=== PATIENT | female | born 1930 | race African-American/Black ===

== ENCOUNTER 2017-09-23 18:37 | Inpatient (IN) | payer MEDICARE, MEDICAID ==
[2017-09-23 20:01] LABS: Bilirubin Negative (Negative); Blood, Urine Trace (Negative); Glucose, Urine (Dipstick) Negative (Negative); Ketone, Urine Negative (Negative); Nitrite Negative (Negative); Protein, Urine (Dipstick) Negative (Neg-Trace)
[2017-09-23 20:04] LABS: Bacteria/HPF 1+ HPF (None Seen); Hyaline Casts/LPF 0-3 HYALINE CAST LPF (0-3 Hyaline); Squamous Epithelial None Seen HPF (0-3); WBC/HPF 21-50 HPF (0-3)
[2017-09-23 20:12] LABS: Amphetamine Not Detected (NotDetected); Methadone Not Detected (NotDetected); Methamphetamine Not Detected (NotDetected)
[2017-09-23 20:17] LABS: #Lymphocytes 1.1 thou/uL (1.20-3.40); #Monocytes 0.5 thou/uL (0.11-0.59); #Neutrophils 3.8 thou/uL (1.40-6.50); %Basophils 0.3 % (0.0-1.0); %Eosinophils 0.1 % (0.0-10.0); %Lymphocytes 19.5 % (21.0-51.0); %Monocytes 8.8 % (0.0-10.0); Hematocrit 39.3 % (36.0-47.0); Mean Platelet Volume 7.2 fL (7.4-10.4); Red Blood Cell (RBC) Count 4.21 mill/uL (4.20-5.40); White Blood Cell (WBC) Count 5.4 thou/uL (4.8-10.8)
[2017-09-23 20:29] LABS: ALT (SGPT) 7 U/L (8-55); AST (SGOT) 27 U/L (5-34); Alkaline Phosphatase 92 U/L (40-150); Anion Gap 13 mmol/L (10-20); BUN (Urea Nitrogen) 15 mg/dL (9.8-20.1); Bilirubin, Total 0.6 mg/dL (0.2-1.2); Calc. Creatinine Clearance 0 mL/min (70-130); Calcium 8.8 mg/dL (7.8-10.44); Carbon Dioxide 25 mmol/L (23-31); Chloride 104 mmol/L (98-107); Estimated GFR-MDRD 87; Globulin 3.2 g/dL (2.4-3.5); Lipase Less than 4 U/L (8-78); Magnesium 2.3 mg/dL (1.6-2.6); Protein, Total 6.4 g/dL (6.0-8.3)
[2017-09-23 20:31] LABS: Troponin I 0.078 ng/mL (< 0.028)
[2017-09-23 22:13] LABS: Troponin I 0.086 ng/mL (< 0.028)
[2017-09-24 01:20] LABS: Troponin I 0.091 ng/mL (< 0.028)
[2017-09-24] MEDS: hydrALAZINE 20 MG/ML VIAL SLOW IVP PRN ×2 (03:46→13:15)
[2017-09-24] MEDS: Acetaminophen 325 MG TAB PO PRN (03:47)
[2017-09-24 05:18] LABS: Anion Gap 15 mmol/L (10-20); BUN (Urea Nitrogen) 12 mg/dL (9.8-20.1); Calc. Creatinine Clearance 51 mL/min (70-130); Calcium 8.8 mg/dL (7.8-10.44); Carbon Dioxide 19 mmol/L (23-31); Chloride 105 mmol/L (98-107); Estimated GFR-MDRD Greater than 90
--- NOTE | 2017-09-24 06:24 | PDOC.FM ---
- Subjective Subjective: Pt is acutely confused. Per nursing she was trying to get out of bed and was A& O x0. - Objective Vital Signs & Weight: Vital Signs (12 hours) Temp Pulse Resp BP BP Pulse Ox 09/24/17 04:00 97.7 F 75 18 195/83 H 97 09/24/17 03:46 77 192/83 H 09/24/17 01:53 98 09/24/17 00:10 97.6 F 64 20 174/86 H 95 Weight Weight 58.468 kg I&O: 09/22/17 09/23/17 09/24/17 06:59 06:59 06:59 Intake Total 50 Balance 50 Result Diagrams: 09/23/17 19:58 09/24/17 04:48 <Ron Preston - Last Filed: 09/24/17 10:27> - Objective Vital Signs & Weight: Vital Signs (12 hours) Temp Pulse Resp BP BP Pulse Ox 09/24/17 08:00 98.9 F 70 18 98 09/24/17 07:23 98.9 F 70 18 134/67 98 09/24/17 06:33 155/77 H 09/24/17 04:00 97.7 F 75 18 195/83 H 97 09/24/17 03:46 77 192/83 H 09/24/17 01:53 98 09/24/17 00:10 97.6 F 64 20 174/86 H 95 Weight Weight 58.468 kg I&O: 09/23/17 09/24/17 09/25/17 06:59 06:59 06:59 Intake Total 50 Balance 50 Result Diagrams: 09/24/17 04:48 09/24/17 04:48 <Cornelio Diaz - Last Filed: 09/24/17 10:44> Phys Exam - Physical Examination Constitutional: NAD HEENT: moist MMs Neck: no JVD, full ROM Respiratory: clear to auscultation bilateral irregularly irregular Gastrointestinal: soft, non-tender, no distention, positive bowel sounds Musculoskeletal: no edema diffusely tender on R leg. difficult to localize dt confusion Neurological: non-focal, moves all 4 limbs Deviation from normal: A&O x0 Skin: no rash <Ron Preston - Last Filed: 09/24/17 10:27> Dx/Plan (1) Acute delirium Code(s): R41.0 - DISORIENTATION, UNSPECIFIED Status: Acute (2) UTI (urinary tract infection) Status: Acute QualifierTitle: Urinary tract infection type: acute cystitis Hematuria presence: without hematuria Qualified Code(s): N30.00 - Acute cystitis without hematuria (3) Elevated troponin Code(s): R74.8 - ABNORMAL LEVELS OF OTHER SERUM ENZYMES Status: Acute (4) Afib Code(s): I48.91 - UNSPECIFIED ATRIAL FIBRILLATION Status: Chronic QualifierTitle: Atrial fibrillation type: unspecified Qualified Code(s): I48.91 - Unspecified atrial fibrillation (5) Recurrent falls Code(s): R29.6 - REPEATED FALLS Status: Chronic Plan: 1. Acute delirium -likely 2/2 UTI. Pt has cultures pending, rocephin on board -possible other causes include intracranial bleed, will order head CT, and advanced dementia 2. UTI -continue rocephin while cx are pending 3. HTN -med rec pending, son will bring meds -PRN hydralizine 4. Dementia -unsure as to baseline function, son is not very reliable -pt needs placement in nursing facility -case management consult pending 5. afib -unsure what pt normally takes for anticoagulation, meds pending from son -start prophylactic lovenox after brain bleed ruled out 6. Hx of falls -xray of L hip/leg -ct brain (6) HTN (hypertension) Code(s): I10 - ESSENTIAL (PRIMARY) HYPERTENSION Status: Acute QualifierTitle: Hypertension type: unspecified Qualified Code(s): I10 - Essential (primary) hypertension (7) Diabetes mellitus Code(s): E11.9 - TYPE 2 DIABETES MELLITUS WITHOUT COMPLICATIONS Status: Chronic (8) Dementia Code(s): F03.90 - UNSPECIFIED DEMENTIA WITHOUT BEHAVIORAL DISTURBANCE Status: Chronic - Plan Plan: 1. Acute delirium -dementia vs UTI vs intracranial bleed -rocephin on board, cultures pending -consider brain ct 2. UTI -abx and cx as above -move to po meds pending speech eval and sensitivities 3. Hx of falls -brain ct -L hip/leg xray 4. Afib -unsure as to home meds. Waiting for son to bring meds -start lovenox pending brain imaging 5. HTN -med rec pending as above. -PRN hydralizine 6. DM -dont know meds. Hx from son -SSI 7. Dementia -do not know baseline. Per son she is normally forgetful, however he is a poor historian -pt needs placement in nursing facility -case management consult pending 8. Elevated trops -now down trending -likely related to demand -continue to monitor. <Ron Preston - Last Filed: 09/24/17 10:27> Attending Addendum - Attending Addendum I personally evaluated the patient and discussed the management with Dr. Preston. I agree with the History, Examination, Assessment and Plan documented above with any addition or exceptions noted below. Patient mentation somewhat improved this morning. She was oriented x 1. She has baseline dementia with what appears to be chronic progression with possibly some acute worsening. She has UTI that could be causing some of this. We will spend today keeping patient awake to prevent sundowning tonight. Continue abx and await culture. She is afebrile. Her troponins are downtrending. Possible demand ischemia with underlying cardiac disease, but no known diagnosis. Will discuss with family how in depth they would like to pin down diagnosis as it would likely not change her prognosis or activity level. Consider Echo or stress if they want further workup. Will work on placement for patient as she is deconditioned and needs more intensive monitoring than what family feels they can provide. <Cornelio Diaz - Last Filed: 09/24/17 10:44>
[2017-09-24] MEDS ORDERED: Dextrose 50% Abboject 50 ML SYRINGE SLOW IVP PRN (07:23)
[2017-09-24] MEDS ORDERED: Dextrose 5% in Water 1,000 ML IV PRN (07:23)
[2017-09-24] MEDS ORDERED: HumaLOG 300 UNITS/3 ML VIAL SC PRN (07:23)
--- NOTE | 2017-09-24 07:51 | PDOC.EVN ---
Attending Addendum - Attending Addendum I personally evaluated the patient and discussed the management with Dr. Medrano. I agree with the History, Examination, Assessment and Plan documented in his H& P with any addition or exceptions noted below. Patient admitted after transfer due to fall and incidental finding of elevated troponins in this elderly patient. She has been admitted for enzymes rule out. Will discuss with family the desire for more intensive testing such as stress testing. Her vitals are stable. She appears to have UTI on UA which could be contributing to symptoms of fall. Will treat empirically and await cultures. Treat chronic conditions as necessary. Therapy while in house.
[2017-09-24 08:43] LABS: Troponin I 0.124 ng/mL (< 0.028)
--- NOTE | 2017-09-24 08:47 | HP-2 ---
CODE STATUS: FULL. PRIMARY CARE PHYSICIAN: [facility]. ATTENDING: Dr. Diaz, PGY1 and Dr. Medrano. HISTORIAN: Mostly from her son. CHIEF COMPLAINT: Altered mental status and elevated troponins from an outside ED. HISTORY OF PRESENT ILLNESS: This is an 87-year-old female with advanced dementia that presents from the [facility] ED after finding UTI and elevated troponins. In the recent past, her son states she love s been getting more and more confused and has had more falls and has been more of a burden on himself . He states his mother has had dementia over 8 years and is getting worse. He also notes that she h as had more falls, especially over the last couple days. The patient did not complain of any chest p ain during this interview, but she did note some pain on her left side. She also noted some tenderne ss to her left lower extremity. She has no other complaints at this time. PAST MEDICAL HISTORY: Significant for hypertension, diabetes, and dementia. PAST SURGICAL HISTORY: Unavailable as she is a poor historian. ALLERGIES: CODEINE and INDOCIN. MEDICATIONS: Unavailable at this time, the son will be traveling home to get the meds to be sent to us tomorrow. FAMILY HISTORY: Deferred. SOCIAL HISTORY: Denies any tobacco, alcohol or drug use. REVIEW OF SYSTEMS: General: She denies any fevers or chills, weight changes, night sweats, or fatig ue. Eyes: Denies any vision changes or eye pain. ENT: Denies nasal congestion, rhinorrhea, or sor e throat. Respiratory: Denies cough, congestion, shortness of breath or exercise intolerance. Card iovascular: Her son does state that she had some chest pain. Denies any palpitations, edema, orthop eugenia. Gastrointestinal: Denies any nausea, vomiting, diarrhea, constipation, abdominal pain, GI blee ding. Genitourinary: Denies any incontinence. Denies any polyuria or denies any discharge. Skin: Denies any rashes, lesions, jaundice, itching. Musculoskeletal: Denies any pain, tenderness, stiff ness, swelling. Neurologic: Denies any weakness, numbness, syncope, seizures, but she has had falls in the recent past. Psychiatric: Denies anxiety or depression, but she has had advanced dementia. PHYSICAL EXAMINATION: VITAL SIGNS: Blood pressure is 167/76, pulse was 78, respiratory rate 14, temperature max 98.0, puls e ox 98% on room air, current weight is 68 kilos. GENERAL: She is alert and oriented x2, appropriate, interactive. EYES: Ectropion is present bilaterally. ENT: Nasal mucosa and oropharynx within normal limits. NECK: Supple, without lymphadenopathy, without thyromegaly, without bruit. CARDIOVASCULAR: Regular rate and rhythm. She did have a murmur present. Radial and pedal pulses ar e equal bilaterally. RESPIRATORY: Normal effort. LUNGS: Clear to auscultation bilaterally. SKIN: Warm and dry. ABDOMEN: Soft, nontender to palpation. Bowel sounds are present x4. No mass or distention. EXTREMITIES: She did not have any clubbing or cyanosis. She did have some edema. She does not have any edema. She does have some left lower extremity redness and tenderness. MUSCULOSKELETAL: Structure, tone. Muscle strength and range of motion within normal limits. NEUROLOGIC: No focal neurologic deficits. Sensation within normal limits. Cranial nerves II-XII gr ossly intact. GCS was 15. PSYCH: She was appropriate. LABORATORY DATA: White blood cell count 5.4, platelet count 251, hemoglobin 13.1, hematocrit 39.3, M CV was 93.4, neutrophils 71.2. Sodium 138, potassium 4.0, chloride 104, bicarbonate 25, BUN 15, crea tinine 0.76, glucose 99, calcium 8.8, total protein 6.4, albumin 3.2, AST 27, ALT 7, alkaline phospha tase 92, total bilirubin 0.6. CK-MB was 4.6, troponin I was 0.078 and 0.086. Lipase was less than 4. UDS was negative. UA showed a small amount of leukocyte esterase, 4 to 6 red blood cells and 21 to 50 white blood cells and 1+ bacteria. ASSESSMENT AND PLAN: This is an 87-year-old female who presents with: 1. Elevated troponins. We will trend her troponins, repeat an EKG if she is symptomatic. We will g et a TSH, BNP and consider Cardiology consult. 2. Urinary tract infection. We will continue her antibiotics. 3. Acute delirium secondary to the urinary tract infection same as above. 4. Dementia, likely need long-term care facility and case management consult. 5. Physical deconditioning. Case management consult for long-term care facility as well as OT and P T evaluation. 6. Hypertension. We will continue her home meds. DISPOSITION: Length of hospital stay will be inpatient and greater than 2 midnights. Symptomatic medications will be provided. History and physical exam as well as management has been discussed with Dr. Diaz.
[2017-09-24] MEDS ORDERED: FLU VACC TS2017-18 (>65YR) 0.5 ML SYRINGE IM ONE (09:00)
[2017-09-24 09:05] LABS: #Lymphocytes 0.7 thou/uL (1.20-3.40); #Monocytes 0.4 thou/uL (0.11-0.59); #Neutrophils 4.1 thou/uL (1.40-6.50); %Basophils 0.2 % (0.0-1.0); %Eosinophils 0.1 % (0.0-10.0); %Lymphocytes 13.5 % (21.0-51.0); %Monocytes 8.2 % (0.0-10.0); Hematocrit 40.1 % (36.0-47.0); Mean Platelet Volume 7.1 fL (7.4-10.4); Red Blood Cell (RBC) Count 4.29 mill/uL (4.20-5.40); White Blood Cell (WBC) Count 5.2 thou/uL (4.8-10.8)
[2017-09-24 09:46] LABS: Troponin I 0.131 ng/mL (< 0.028)
--- NOTE | 2017-09-24 10:05 | CT ---
CT BRAIN: Date: 09/24/17 PROVIDED CLINICAL HISTORY: Fall. FINDINGS: The ventricular system is mildly prominent on the basis of central atrophy. Chronic microvascular isc hemic changes are noted, primarily involving periventricular white matter. There is no evidence for i ntracranial hemorrhage or mass effect. The extracranial soft tissues and osseous structures demonstra te no acute abnormality. IMPRESSION: No evidence for intracranial hemorrhage or mass effect. POS: [facility]
--- NOTE | 2017-09-24 12:30 | RAD ---
LEFT FEMUR 2 VIEWS: Date: 09/24/17 PROVIDED CLINICAL HISTORY: Leg pain status post injury. FINDINGS: There is no evidence for fracture or other acute osseous abnormality. Degenerative changes are seen a t the left hip and left knee. Interarticular bodies are suspected at the left knee joint. Vascular ca lcifications are seen. IMPRESSION: No evidence for an acute osseous abnormality. If there is persistent clinical concern, conservative m anagement and follow-up imaging are advised. POS: [facility]
--- NOTE | 2017-09-24 12:31 | RAD ---
RIGHT FEMUR 2 VIEWS: Date: 09/24/17 PROVIDED CLINICAL HISTORY: Right leg pain status post fall. FINDINGS: Degenerative change are seen at the right hip and right knee. There is no evidence for fracture or ot her acute osseous abnormality. If there is persistent clinical concern, conservative management and f ollow-up imaging are advised. IMPRESSION: As above. POS: [facility]
[2017-09-24 12:49] LABS: Troponin I 0.124 ng/mL (< 0.028)
[2017-09-24] MEDS: Enoxaparin Sodium 40 MG/0.4 ML SYRINGE SC SCH (13:03)
[2017-09-24] MEDS ORDERED: cefTRIAXone\\ROCEPHIN 1 GM in Sodium Chloride 0.9% 100 ML IVPB SCH (16:00)
[2017-09-24] MEDS: cefTRIAXone\\ROCEPHIN 1 GM, Syringe 0.4 ML in Sterile Water 9.6 ML SLOW IVP SCH (16:55)
--- NOTE | 2017-09-25 06:36 | PDOC.FM ---
- Subjective Subjective: No acute events overnight. Pt failed speech dysphagia screen this morning. Changed diet to purees. Pt is alert to self, otherwise not oriented. She is pleasant. Denied chest pain. - Objective Vital Signs & Weight: Vital Signs (12 hours) Temp Pulse Resp BP Pulse Ox 09/25/17 04:00 98.1 F 82 16 125/82 97 09/24/17 19:30 98.2 F 82 14 96 Weight Weight 56.654 kg I&O: 09/23/17 09/24/17 09/25/17 06:59 06:59 06:59 Intake Total 50 20 Balance 50 20 Result Diagrams: 09/24/17 04:48 09/24/17 04:48 <Ariana Miller - Last Filed: 09/25/17 09:15> - Objective Vital Signs & Weight: Vital Signs (12 hours) Temp Pulse Pulse Resp BP BP BP 09/25/17 16:35 82 09/25/17 15:50 98.4 F 82 15 193/142 H 09/25/17 11:45 98.2 F 76 12 149/74 H 09/25/17 10:52 76 143/83 H 09/25/17 09:30 97.8 F 73 14 167/83 H 09/25/17 08:07 133/80 148/85 H Pulse Ox 09/25/17 16:35 09/25/17 15:50 98 09/25/17 11:45 98 09/25/17 10:52 09/25/17 09:30 99 09/25/17 08:07 Weight Weight 56.654 kg I&O: 09/24/17 09/25/17 09/26/17 06:59 06:59 06:59 Intake Total 50 20 Balance 50 20 Result Diagrams: 09/24/17 04:48 09/24/17 04:48 <Denise Funez - Last Filed: 09/25/17 19:50> Phys Exam - Physical Examination HEENT: PERRLA, moist MMs erythematous lower eyelids bilaterally Neck: no JVD Respiratory: no wheezing, no rales, no rhonchi, clear to auscultation bilateral Cardiovascular: RRR, no significant murmur Gastrointestinal: soft, non-tender, no distention, positive bowel sounds Musculoskeletal: no edema, pulses present Deviation from normal: a&ox1 (self) Skin: no rash <PaulAriana - Last Filed: 09/25/17 09:15> Dx/Plan - Plan Plan: 87 yo f with a pmhx of dementia presents from [facility] for increased falls and confusion, chest pain and elevated troponins, admitted for acute delirium 2/2 UTI, dementia, and chest pain rule out. 1. Acute delirium, alert and oriented X 1 -urine cx negative at 12 hours -Hd CT ordered: no evidence of acute bleed; chronic microvascular changes 2. Hx of falls -xray of L hip/leg-->no evidence of femur fracture on xray -ct brain- no evidence of acute bleed, chronic microvascular changes -PT eval -OT eval 3. UTI, uncomplicated -Continue rocephin 1g q24hrs -Urine cx negative at 12 hours 4. Chest pain rule out- Trops indeterminate, no complaint of chest pain talk to family about desire for stress test EKG negative for ST elevations or depressions 5.) HTN,controlled -med rec pending, son will bring meds -PRN hydralizine 6. Dementia -unclear baseline -PT,OT,Speech, CM consults pending 9.)Dispo: pending case management <PaulAriana - Last Filed: 09/25/17 09:15> Attending Addendum - Attending Addendum I personally evaluated the patient and discussed the management with Dr. Yusuf. I agree with the History, Examination, Assessment and Plan documented above with any addition or exceptions noted below. The patient has dementia. Will talk with son regarding home meds and goals of care. Working on placement. Pt noted chest pain yesterday but none today. Further workup of chest pain pending family discussions. <Denise Funez - Last Filed: 09/25/17 19:50>
[2017-09-25 09:09] LABS: Hemoglobin A1c 5.3 % (4.0-6.0)
[2017-09-25] MEDS: Enoxaparin Sodium 40 MG/0.4 ML SYRINGE SC SCH (09:35)
[2017-09-25] MEDS: hydrALAZINE 20 MG/ML VIAL SLOW IVP PRN (16:35)
[2017-09-25] MEDS: cefTRIAXone\\ROCEPHIN 1 GM, Syringe 0.4 ML in Sterile Water 9.6 ML SLOW IVP SCH (16:50)
--- NOTE | 2017-09-26 06:39 | PDOC.FM ---
- Subjective Subjective: Alert and oriented times one (person); pleasant; endorses pain in left ankle/ fine. - Objective Vital Signs & Weight: Vital Signs (12 hours) Temp Pulse Resp BP Pulse Ox 09/26/17 04:00 97.9 F 80 18 154/78 H 18 L 09/25/17 20:00 98.4 F 94 20 117/57 L 96 Weight Weight 56.518 kg I&O: 09/24/17 09/25/17 09/26/17 06:59 06:59 06:59 Intake Total 50 20 410 Output Total 400 Balance 50 20 10 Result Diagrams: 09/26/17 07:08 09/26/17 07:08 <Ariana Miller - Last Filed: 09/26/17 13:43> - Objective Vital Signs & Weight: Vital Signs (12 hours) Temp Pulse Pulse Pulse Resp BP BP 09/27/17 16:12 98.7 F 75 16 09/27/17 14:05 95 82 113/89 131/64 09/27/17 10:49 98.1 F 74 20 09/27/17 07:56 98.5 F 71 17 BP Pulse Ox 09/27/17 16:12 144/62 H 95 09/27/17 14:05 09/27/17 10:49 113/58 L 97 09/27/17 07:56 125/76 96 Weight Weight 57.697 kg I&O: 09/26/17 09/27/17 09/28/17 06:59 06:59 06:59 Intake Total 410 890 420 Output Total 400 500 450 Balance 10 390 -30 Result Diagrams: 09/26/17 07:08 09/26/17 07:08 <Denise Funez - Last Filed: 09/27/17 19:04> Dx/Plan - Plan Plan: 87 yo f with a pmhx of dementia presents from [facility] for increased falls and confusion, chest pain and elevated troponins, admitted for acute delirium 2/2 UTI, dementia, and chest pain rule out. 1.Chest pain rule out- Trops indeterminate, no complaint of chest pain this morning; however initial complain in the ER. Son desires stress test EKG negative for ST elevations or depressions Pt NPO at midnight If negative stress test; pt can be discharged pending placement. 2. Dementia -unclear baseline -PT,OT,Speech, CM consults pending 3. UTI, uncomplicated -Urine cx NG @ 48 hours -Will continue antibiotics as rocephin was given prior to urine culture being drawn. 4. HTN, controlled -Enalapril 10mg daily 5. Hx of falls -xray of L hip/leg-->no evidence of femur fracture on xray -ct brain- no evidence of acute bleed, chronic microvascular changes -PT eval -OT eval 6. Acute Delerium resolved. alert and oriented X 1 at baseline 2/2 dementia -urine cx negative at 12 hours -Hd CT ordered: no evidence of acute bleed; chronic microvascular changes 7.Dispo: pending case management; recommend alf facility <Ariana Miller - Last Filed: 09/26/17 13:43> Attending Addendum - Attending Addendum I personally evaluated the patient and discussed the management with Dr. Yusuf on 09/26/17. I agree with the History, Examination, Assessment and Plan documented above with any addition or exceptions noted below. The patient will have stress test. Case management is working on placement for the patient. She denies complaints today. <Denise Funez - Last Filed: 09/27/17 19:04>
[2017-09-26 07:15] LABS: #Monocytes 0.6 thou/uL (0.11-0.59); #Neutrophils 4.9 thou/uL (1.40-6.50); %Basophils 0.3 % (0.0-1.0); %Eosinophils 0.1 % (0.0-10.0); %Lymphocytes 15.6 % (21.0-51.0); %Monocytes 8.9 % (0.0-10.0); Hematocrit 41.9 % (36.0-47.0); Mean Platelet Volume 6.6 fL (7.4-10.4); Red Blood Cell (RBC) Count 4.45 mill/uL (4.20-5.40); White Blood Cell (WBC) Count 6.6 thou/uL (4.8-10.8)
[2017-09-26 07:33] LABS: Anion Gap 11 mmol/L (10-20); BUN (Urea Nitrogen) 16 mg/dL (9.8-20.1); Calc. Creatinine Clearance 44 mL/min (70-130); Calcium 8.7 mg/dL (7.8-10.44); Carbon Dioxide 24 mmol/L (23-31); Chloride 107 mmol/L (98-107); Estimated GFR-MDRD 84
[2017-09-26] MEDS ORDERED: Cholecalciferol (Vitamin D3) 400 UNIT/ML DROPS PO SCH (09:00)
[2017-09-26] MEDS: Enoxaparin Sodium 40 MG/0.4 ML SYRINGE SC SCH (09:34)
[2017-09-26] MEDS: Furosemide 40 MG TAB PO SCH (09:34)
--- NOTE | 2017-09-26 13:13 | PQF ---
CLINICAL DOCUMENTATION IMPROVEMENT CLARIFICATION FORM: ICD-10 Updated PLEASE DO AN ADDENDUM TO THE PROGRESS NOTE WITH ANY DOCUMENTATION UPDATES OR ADDITIONS AND CARRY THROUGH TO DC SUMMARY. THANK YOU. DATE: 09/26/17 ATTN: Dr. Miller / Attending Dr. Diaz Please exercise your independent, professional judgment in responding to the clarification form. Clinical indicators are provided on the bottom of this form for your review Please check appropriate box(s): [ ] Encephalopathy: Type: [ X] Acute [ ] Subacute [ X ] Chronic Etiology: [ ] Hypertensive [ ] Metabolic [ ] Toxic [ X ] Unspecified ____Acute Encephalopathy 2/2 presumed UTI; Acute delerium resolved; Pt has a chronic encephalopathy 2/2 dementia with orientation to self at baseline. [ X ] in the setting of underlying dementia [ ] Other (please specify) [ ] Other diagnosis [ ] Unable to determine For continuity of documentation, please document condition throughout progress notes and discharge summary. Thank You. CLINICAL INDICATORS - SIGNS / SYMPTOMS / LABS PN 09/24: PT IS ACUTELY CONFUSED. PER NSG SHE WAS TRYING TO GET OUT OF BED & WAS A&O X 0 PN 09/26: ACUTE DELIRIUM RESOLVED. ALERT & ORIENTED X1 AT BASELINE 2/2 DEMENTIA. URINE CX NEGATIVE AT 12 HRS. RISKS: H&P: ACUTE DELIRIUM SECONDARY TO THE URINARY TRACT INFECTION. HX SIGNIFICANT FOR HYPERTENSION, DIABETES, DEMENTIA. TREATMENTS: ORDER: 09/24 ROCEPHIN 1 GM IV Thank you, Alaina (This form is maintained as a part of the permanent medical record) 2015 [employer], [employer]. All Rights Reserved Alaina Carrillo RN, BSN [email or web address] Office: [phone] [facility]
--- NOTE | 2017-09-26 15:56 | NM ---
CARDIAC SPECT WITH EF AND WALL MOTION: HISTORY: An 87-year-old female with a history of indeterminate troponins, hypertension, diabetes mellitus. Adenosine sestamibi study is performed. The patient was injected with 32 mCi Technetium 99m sestamibi intravenously for stress images and the patient was injected with 9.9 mCi Technetium 99m sestamibi intravenously for resting images. Multiple SPECT images in the short axis, vertical long axis, and horizontal long axis demonstrate abn ormal decreased activity in the inferior wall on stress and resting images, evidence for infarct or s car. TID 1.16. LHR 0.24. EDV 72 mL. EF is 33%. MYOCARDIAL PERFUSION WALL MOTION: There is some mild global hypokinesis. IMPRESSION: Abnormal decreased activity in the inferior wall on stress and resting images, evidence for infarct o r scar. Ejection fraction 33% with some global hypokinesis. POS: [facility]
[2017-09-26] MEDS ORDERED: cefTRIAXone\\ROCEPHIN 1 GM in Sodium Chloride 0.9% 100 ML IVPB SCH (16:00)
--- NOTE | 2017-09-26 16:29 | RAD ---
THREE VIEWS LEFT ANKLE 09/26/17 HISTORY: Fall with left ankle pain. AP, lateral, and oblique views of the left ankle is obtained. Three views left ankle demonstrates vascular calcification seen. 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 No evidence of acute fractures, subluxations or bony lesions seen. IMPRESSION: No evidence of acute left ankle fracture seen. POS: [facility]
--- NOTE | 2017-09-26 16:33 | RAD ---
FRONTAL AND LATERAL IMAGING OF THE LEFT TIBIA AND FIBULA 09/26/17 COMPARISON: None. HISTORY: Recent fall, pain. FINDINGS: The bones are demineralized, limiting evaluation for nondisplaced fracture. There is no significant m edial compartment narrowing. There is severe lateral compartment narrowing with subchondral sclerosis and osteophyte formation. There is a small knee joint effusion. There are numerous calcified radiopaque foreign bodies within t he left knee joint, including the left suprapatellar bursa, suggesting secondary synovial osteochondr omatosis. No definite acute fracture or dislocation is seen. Of note, on the lateral view, the distal left tibia and fibula are not fully imaged. There is prominent patellofemoral degenerative change. 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 POS: [facility]
[2017-09-26] MEDS: cefTRIAXone\\ROCEPHIN 1 GM, Syringe 0.4 ML in Sterile Water 9.6 ML SLOW IVP SCH (16:48)
[2017-09-26] MEDS ORDERED: ADENOSINE 60 MG/20 ML VIAL ONE (17:09)
--- NOTE | 2017-09-27 06:57 | PDOC.EVN ---
Event Note - Event Note Event Note: Pt with severe dementia and elevated trops and chest pain on admission. No chest pain since that time. Consulted cardiology after receiving stress test results of an inferior wall infarct vs scar with an EF of 33%. Pt currently not actively having chest pain, not currenty having an NSTEMI or STEMI. Will follow up with cardiology recommendations.
--- NOTE | 2017-09-27 07:00 | PDOC.FM ---
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 Pt was started on a bb. Fasting lipid panel ordered. Will dc patient pending echo ordered today. - Objective MAR Reviewed: Yes Vital Signs & Weight: Vital Signs (12 hours) Temp Pulse Resp BP Pulse Ox 09/27/17 04:30 98 09/27/17 04:00 98.3 F 68 18 137/63 98 09/26/17 20:15 98.9 F 78 16 95 09/26/17 19:30 98.9 F 78 16 137/64 95 Weight Weight 57.697 kg I&O: 09/25/17 09/26/17 09/27/17 06:59 06:59 06:59 Intake Total 20 410 890 Output Total 400 500 Balance 20 10 390 Result Diagrams: 09/26/17 07:08 09/26/17 07:08 <Ariana Miller - Last Filed: 09/27/17 13:26> - Objective Vital Signs & Weight: Vital Signs (12 hours) Temp Pulse Pulse Pulse Resp BP BP 09/27/17 16:12 98.7 F 75 16 09/27/17 14:05 95 82 113/89 131/64 09/27/17 10:49 98.1 F 74 20 09/27/17 07:56 98.5 F 71 17 BP Pulse Ox 09/27/17 16:12 144/62 H 95 09/27/17 14:05 09/27/17 10:49 113/58 L 97 09/27/17 07:56 125/76 96 Weight Weight 57.697 kg I&O: 09/26/17 09/27/17 09/28/17 06:59 06:59 06:59 Intake Total 410 890 420 Output Total 400 500 450 Balance 10 390 -30 Result Diagrams: 09/26/17 07:08 09/26/17 07:08 <Denise Funez - Last Filed: 09/27/17 19:21> Phys Exam - Physical Examination HEENT: PERRLA, sclera anicteric Respiratory: no wheezing, no rales, clear to auscultation bilateral Cardiovascular: RRR, no significant murmur Gastrointestinal: soft, non-tender, no distention, positive bowel sounds Musculoskeletal: no edema, pulses present Deviation from normal: alert and oriented to self <PaulAriana - Last Filed: 09/27/17 13:26> Dx/Plan (1) Elevated troponin Code(s): R74.8 - ABNORMAL LEVELS OF OTHER SERUM ENZYMES Status: Acute (2) HTN (hypertension) Code(s): I10 - ESSENTIAL (PRIMARY) HYPERTENSION Status: Acute QualifierTitle: Hypertension type: unspecified Qualified Code(s): I10 - Essential (primary) hypertension (3) Dementia Code(s): F03.90 - UNSPECIFIED DEMENTIA WITHOUT BEHAVIORAL DISTURBANCE Status: Chronic (4) Diabetes mellitus Code(s): E11.9 - TYPE 2 DIABETES MELLITUS WITHOUT COMPLICATIONS Status: Chronic (5) Recurrent falls Code(s): R29.6 - REPEATED FALLS Status: Chronic - Plan Plan: 87 yo f with a pmhx of dementia presents from [place] for increased falls and confusion, chest pain and elevated troponins, admitted for acute delirium 2/2 UTI, dementia, and chest pain rule out. 1.Chest pain rule out- Stress test positive for an inferior wall infarct vs scar and with an EF 33% Cards consulted who recommend medical management and and echo; also started pt on bb and ordered a lipid profile 2. Dementia -unclear baseline -PT,OT,Speech, CM consulted 3. UTI, uncomplicated -Urine cx NG @ 48 hours -Will continue antibiotics as rocephin was given prior to urine culture being drawn. 4. HTN, controlled -Enalapril 10mg daily 5. Hx of falls -xray of L hip/leg-->no evidence of fracture on xray -ct brain- no evidence of acute bleed, chronic microvascular changes -PT eval -OT eval 6. Acute Delerium resolved. alert and oriented X 1 at baseline 2/2 dementia -urine cx negative at 12 hours -Hd CT ordered: no evidence of acute bleed; chronic microvascular changes 7.Dispo: pt has placement at [facility] in [place]. Will dc pt after echo. <Ariana Miller - Last Filed: 09/27/17 13:26> Attending Addendum - Attending Addendum I personally evaluated the patient and discussed the management with Dr. Yusuf. I agree with the History, Examination, Assessment and Plan documented above with any addition or exceptions noted below. The patient is doing well and placement has been arranged. EF 33% on stress test and stress test was abnormal. Cardiology has been consulted and echo is being ordered. Pt will be medically managed otherwise. <Denise Funez - Last Filed: 09/27/17 19:21>
[2017-09-27] MEDS: Furosemide 40 MG TAB PO SCH (08:50)
[2017-09-27] MEDS: Enoxaparin Sodium 40 MG/0.4 ML SYRINGE SC SCH (08:52)
[2017-09-27] MEDS: Acetaminophen 325 MG TAB PO PRN ×2 (09:00→21:10)
[2017-09-27] MEDS ORDERED: Aspirin 81 mg Enteric Coated Tablet PO SCH (09:15)
--- NOTE | 2017-09-27 10:17 | CON ---
DATE OF CONSULTATION: 09/27/2017 HISTORY: Vero Guardado is an 87-year-old black female transferred from [place] emergency room for evaluation of altered mental status and elevated troponin. She was initially taken to [facility] for evaluation of altered mental status. Currently, she has severe dementia and it has been increasingly difficult for the family to take care of her at home. She becomes confused and also has had frequent falls, especially the couple days prior to admission. Ms. Guardado does not complain of any chest discomfort ever in the past, although with her dementia I am not certain as to the accuracy of that. PAST MEDICAL HISTORY: Hypertension, diabetes, dementia. OPERATIONS: The patient states she has never had any surgeries. MEDICATIONS: At home include enalapril 10 mg daily, furosemide 40 daily, lactulose 10 grams p.r.n., tramadol q.8h. p.r.n. ALLERGIES: INDOCIN and CODEINE. SOCIAL HISTORY: She does not smoke or drink. FAMILY HISTORY: Negative for coronary artery disease. REVIEW OF SYSTEMS: Difficult to obtain with her dementia. PHYSICAL EXAMINATION: VITAL SIGNS: Blood pressure 125/76, pulse 71, sinus rhythm on the monitor. HEENT: PERRL. NECK: Supple. CHEST: Clear. CARDIAC: S1 and S2 are normal, without any S3 or S4. There is a 2/6 systolic ejection murmur heard loudest at the apex. Carotid upstroke is normal. ABDOMEN: Normal bowel sounds, without tenderness or organomegaly. EXTREMITIES: Revealed no clubbing, cyanosis or edema. NEUROLOGIC: The patient seems confused and is only oriented x1. She moves all extremities. SKIN: Warm and dry. LABORATORY: EKG reveals normal sinus rhythm and is unremarkable. Hemoglobin 13.8, hematocrit 41.9, white count 6600, platelets 297,000. Sodium 138, potassium 3.9, chloride 107, carbon dioxide 24, BUN 16, creatinine 0.78. Urine reveals trace blood, small leukocyte esterase, 4-6 RBCs, 21-50 WBCs, 1+ bacteria. Urine drug screen is negative. Troponin I is up to 0.131. Adenosine Cardiolite test revealed inferior infarction or scar. Ejection fraction was 33% with global hypokinesis. IMPRESSION: 1. Indeterminate troponins with a fixed defect of the inferior wall on Cardiolite scan. 2. Ejection fraction of 33%. 3. Systolic murmur. 4. Dementia. 5. Hypertension. 6. Diabetes. 7. History of falls. 8. Possible urinary tract infection, although urine culture was negative at 48 hours. RECOMMENDATIONS: I cannot get a history of chest pain from Ms. Guardado although with her dementia, I am not certain of the accuracy of that history. Her EKG only shows a small Q-wave in lead III, but not in II or F. Alternatively, the Cardiolite result could represent diaphragmatic attenuation. With her advanced dementia, I would not pursue an invasive evaluation and feel she should be treated medically. She will be started on low dose beta irina, aspirin. Fasting lipids will be obtained. If her LDL is greater than 70 then she should be started on a statin. Also, an echocardiogram will be performed to evaluate her systolic murmur and ejection fraction of 33% found on Cardiolite study. MTDD
[2017-09-27] MEDS: cefTRIAXone\\ROCEPHIN 1 GM, Syringe 0.4 ML in Sterile Water 9.6 ML SLOW IVP SCH (16:31)
[2017-09-28] MEDS: Acetaminophen 325 MG TAB PO PRN ×2 (04:18→15:03)
[2017-09-28] MEDS ORDERED: Atorvastatin Calcium 40 MG TAB PO SCH ×2 (07:30→21:00)
[2017-09-28 07:39] LABS: Anion Gap 11 mmol/L (10-20); BUN (Urea Nitrogen) 23 mg/dL (9.8-20.1); Calc. Creatinine Clearance 42 mL/min (70-130); Calcium 8.9 mg/dL (7.8-10.44); Carbon Dioxide 28 mmol/L (23-31); Chloride 108 mmol/L (98-107); Estimated GFR-MDRD 79
[2017-09-28] MEDS: Furosemide 40 MG TAB PO SCH (08:18)
[2017-09-28] MEDS: Enoxaparin Sodium 40 MG/0.4 ML SYRINGE SC SCH (08:18)
[2017-09-28] MEDS: Aspirin 81 mg Enteric Coated Tablet PO SCH (08:18)
--- NOTE | 2017-09-28 11:35 | PDOC.FM ---
- Subjective Subjective: pt seen and is concerned about getting clothing to go home. continues to ask about where her son is and thinks she is in her home currently. - Objective MAR Reviewed: Yes Vital Signs & Weight: Vital Signs (12 hours) Temp Pulse Resp BP BP Pulse Ox 09/28/17 08:18 131/76 09/28/17 08:14 97.6 F 82 16 131/76 96 09/28/17 04:09 98 09/28/17 04:00 97.8 F 71 20 101/56 L 98 09/27/17 23:50 99.3 F 74 18 144/71 H 98 Weight Weight 57.107 kg I&O: 09/27/17 09/28/17 09/29/17 06:59 06:59 06:59 Intake Total 890 530 Output Total 500 450 Balance 390 80 Result Diagrams: 09/26/17 07:08 09/28/17 05:26 <Jailene Salgado - Last Filed: 09/28/17 11:33> - Objective Vital Signs & Weight: Vital Signs (12 hours) Temp Pulse Resp BP BP Pulse Ox 09/28/17 08:18 131/76 09/28/17 08:14 97.6 F 82 16 131/76 96 09/28/17 04:09 98 09/28/17 04:00 97.8 F 71 20 101/56 L 98 09/27/17 23:50 99.3 F 74 18 144/71 H 98 Weight Weight 57.107 kg I&O: 09/27/17 09/28/17 09/29/17 06:59 06:59 06:59 Intake Total 890 530 Output Total 500 450 Balance 390 80 Result Diagrams: 09/26/17 07:08 09/28/17 05:26 <Denise Funez - Last Filed: 09/28/17 11:44> Phys Exam - Physical Examination Constitutional: NAD HEENT: moist MMs, oral pharynx no lesions Respiratory: no wheezing, clear to auscultation bilateral Cardiovascular: RRR 3/6 DEDRA Gastrointestinal: soft, non-tender Musculoskeletal: no edema Neurological: non-focal, moves all 4 limbs Psychiatric: normal affect Deviation from normal: alert & oriented only to self Skin: no rash, normal turgor <Jailene Salgado - Last Filed: 09/28/17 11:33> Dx/Plan (1) UTI (urinary tract infection) Status: Acute QualifierTitle: Urinary tract infection type: acute cystitis Hematuria presence: without hematuria Qualified Code(s): N30.00 - Acute cystitis without hematuria (2) CAD (coronary artery disease), [place] coronary artery Code(s): I25.10 - ATHSCL HEART DISEASE OF [place] CORONARY ARTERY W/O ANG PCTRS Status: Acute QualifierTitle: [place] vs. transplanted heart: [place] heart Associated angina: without angina Qualified Code(s): I25.10 - Atherosclerotic heart disease of [place] coronary artery without angina pectoris (3) HTN (hypertension) Code(s): I10 - ESSENTIAL (PRIMARY) HYPERTENSION Status: Chronic QualifierTitle: Hypertension type: unspecified Qualified Code(s): I10 - Essential (primary) hypertension (4) Dementia Code(s): F03.90 - UNSPECIFIED DEMENTIA WITHOUT BEHAVIORAL DISTURBANCE Status: Chronic QualifierTitle: Dementia type: unspecified type Dementia behavioral disturbance: without behavioral disturbance Qualified Code(s): F03.90 - Unspecified dementia without behavioral disturbance - Plan Plan: 87 yo f with a hx of advanced dementia hospitalized for increased falls and confusion, found to have elevated troponins and admitted for acute delirium 2/2 UTI, dementia, and chest pain rule out-- 1) CAD in [place] artery w/ fixed defect- - echo confirms preserved EF% and LVH - Dr. Reyes w/ cardiology consulted who recommend medical management- on ASA , statin, BB & ACEI. 2. Dementia, advanced- -pending placement for SNF then likely fdc care 3. UTI, uncomplicated -Urine cx NGTD @ 48 hours-- continue antibiotics as rocephin was given prior to urine culture being drawn. 4. HTN, controlled - cont ACEI & BB 5. Hx of falls -xray negative & -ct brain- no evidence of acute bleed -continue PT/OT Dispo: pt has placement at [facility] in [place]. Will dc tomorrow am when they can arrange for admission. <Jailene Salgado - Last Filed: 09/28/17 11:33> Attending Addendum - Attending Addendum I personally evaluated the patient and discussed the management with Dr. Salgado. I agree with the History, Examination, Assessment and Plan documented above with any addition or exceptions noted below. The patient is confused this morning which is her baseline. She has been accepted for snf placement and will be discharged tomorrow. Reorient patient as necessary. <Denise Funez - Last Filed: 09/28/17 11:44>
--- NOTE | 2017-09-28 13:54 | PRG ---
DATE OF SERVICE: 09/28/2017 SUBJECTIVE: Ms. Guardado is doing well, no current complaints. OBJECTIVE: VITAL SIGNS: Blood pressure 131/76, pulse 82, temperature 97.6. LUNGS: Clear to auscultation. CARDIAC: Regular rate and rhythm with a 2/6 systolic ejection murmur. ABDOMEN: Soft, nontender, nondistended. EXTREMITIES: No edema. IMPRESSION: 1. Moderate aortic stenosis. 2. Altered mental status, now resolved. 3. Elevated troponin. RECOMMENDATIONS: Continue conservative treatment. Overall, LVEF is estimated at 33% per Dr. Omkar Reyes's note. Due to advanced dementia, would continue conservative therapy. Otherwise, I have n o further recommendations.
[2017-09-28] MEDS: cefTRIAXone\\ROCEPHIN 1 GM, Syringe 0.4 ML in Sterile Water 9.6 ML SLOW IVP SCH (16:38)
[2017-09-29] MEDS: Enoxaparin Sodium 40 MG/0.4 ML SYRINGE SC SCH (08:37)
[2017-09-29] MEDS: Aspirin 81 mg Enteric Coated Tablet PO SCH (08:38)
[2017-09-29] MEDS ORDERED: Furosemide 20 MG TAB PO SCH (09:00)
[2017-09-29] MEDS ORDERED: cefTRIAXone\\ROCEPHIN 1 GM VIAL IM SCH (12:00)
[2017-09-29 12:18] VITALS: BP 116/89; TEMP 98
[2017-09-29] MEDS ORDERED: Sterile Water 10 ML ONE (13:44)
--- NOTE | 2017-09-29 13:58 | PDOC.FM ---
- Subjective Subjective: Pt feeling well without complaints. Remains disoriented & confused at baseline. No nursing events & no concerns overnight. - Objective MAR Reviewed: Yes Vital Signs & Weight: Vital Signs (12 hours) Temp Pulse Resp BP BP Pulse Ox 09/29/17 11:05 98.0 F 74 16 116/89 99 09/29/17 08:37 131/63 09/29/17 07:50 98.3 F 71 18 131/63 94 L 09/29/17 04:00 98.0 F 95 20 130/87 Weight Weight 56.155 kg I&O: 09/28/17 09/29/17 09/30/17 06:59 06:59 06:59 Intake Total 530 480 Output Total 450 Balance 80 480 Result Diagrams: 09/26/17 07:08 09/28/17 05:26 <Jailene Salgado - Last Filed: 09/29/17 13:54> - Objective Vital Signs & Weight: Vital Signs (12 hours) Temp Pulse Resp BP BP Pulse Ox 09/29/17 11:05 98.0 F 74 16 116/89 99 09/29/17 08:37 131/63 09/29/17 07:50 98.3 F 71 18 131/63 94 L Weight Weight 56.155 kg I&O: 09/28/17 09/29/17 09/30/17 06:59 06:59 06:59 Intake Total 530 480 360 Output Total 450 Balance 80 480 360 Result Diagrams: 09/26/17 07:08 09/28/17 05:26 <Denise Funez - Last Filed: 09/29/17 16:46> Phys Exam - Physical Examination Constitutional: NAD HEENT: PERRLA, moist MMs Neck: no JVD, supple Respiratory: no wheezing, no rales, clear to auscultation bilateral Cardiovascular: RRR 3/6 DEDRA Gastrointestinal: soft, non-tender, no distention Musculoskeletal: no edema Neurological: non-focal, moves all 4 limbs Psychiatric: normal affect Deviation from normal: alert & oriented only to self Skin: no rash <Jailene Salgado - Last Filed: 09/29/17 13:54> Dx/Plan (1) UTI (urinary tract infection) Status: Acute QualifierTitle: Urinary tract infection type: acute cystitis Hematuria presence: without hematuria Qualified Code(s): N30.00 - Acute cystitis without hematuria (2) CAD (coronary artery disease), [place] coronary artery Code(s): I25.10 - ATHSCL HEART DISEASE OF [place] CORONARY ARTERY W/O ANG PCTRS Status: Acute QualifierTitle: [place] vs. transplanted heart: [place] heart Associated angina: without angina Qualified Code(s): I25.10 - Atherosclerotic heart disease of [place] coronary artery without angina pectoris (3) HTN (hypertension) Code(s): I10 - ESSENTIAL (PRIMARY) HYPERTENSION Status: Chronic QualifierTitle: Hypertension type: unspecified Qualified Code(s): I10 - Essential (primary) hypertension (4) Dementia Code(s): F03.90 - UNSPECIFIED DEMENTIA WITHOUT BEHAVIORAL DISTURBANCE Status: Chronic QualifierTitle: Dementia type: unspecified type Dementia behavioral disturbance: without behavioral disturbance Qualified Code(s): F03.90 - Unspecified dementia without behavioral disturbance - Plan Plan: 87 yo f with a hx of advanced dementia hospitalized for increased falls and confusion, found to have elevated troponins and UTI-- 1) CAD in [place] artery w/ fixed defect- - echo confirms preserved EF% and LVH - Cardiology consulted who recommend medical management- on ASA, statin, BB & ACEI. no indication for cath at this time. 2. Dementia, advanced- - will be discharged to [facility] for SNF & long-term care. 3. UTI, uncomplicated -Urine cx NGTD @ 48 hours-- s/p 5 days of Rocephin after today's dose. No need for further po abx as completed abx course. 4. Deconditioning- - likely secondary to dementia - SNF at [facility] with PT & OT 5. HTN, controlled - cont ACEI & BB 6. Hx of falls -xray negative & -ct brain- no evidence of acute bleed -continue PT/OT at SNF Dispo: D/C to [facility] today. <Jailene Salgado - Last Filed: 09/29/17 13:54> Attending Addendum - Attending Addendum I personally evaluated the patient and discussed the management with Dr. Salgado. I agree with the History, Examination, Assessment and Plan documented above with any addition or exceptions noted below. The patient is doing well. She will be discharged to snf. <Denise Funez - Last Filed: 09/29/17 16:46>
--- NOTE | 2017-10-02 12:37 | DIS-2 ---
ADMITTING RESIDENT: Dr. Medrano. DISCHARGING RESIDENT: Dr. Salgado. DISCHARGING ATTENDING: Dr. Denise Funez. CONSULTATIONS: Dr. Omkar Reyes of Cardiology and [facility]. PROCEDURES: 1. Nuclear medicine stress test showing abnormal decreased activity in the inferior wall and stress and resting images, evidence for infarct or scar with an EF of 33% with global hypokinesis. 2. Echocardiogram, which was a technically difficult study, but there was moderate concentric LVH an d E/A flow reversal noted suggestive of diastolic dysfunction with a preserved ejection fraction of 5 0-55%. DISCHARGE MEDICATIONS: NEW MEDICATIONS: 1. Aspirin 81 mg p.o. daily. 2. Atorvastatin 40 mg p.o. at bedtime. 3. Vitamin D3 of 1000 mg p.o. daily. 4. Lasix 20 mg p.o. daily. 5. Toprol-XL 25 mg p.o. daily. 6. Acetaminophen 650 p.o. q.4 h. p.r.n. pain. CONTINUED MEDICATIONS: 1. Lactulose 10 g p.o. p.r.n. constipation. 2. Enalapril 10 mg p.o. daily. DISCONTINUED MEDICATIONS: 1. Tramadol one tab p.o. q.8 hours p.r.n. pain. 2. Lasix 40 mg p.o. daily. PROBLEMS DURING HOSPITAL STAY 1. Coronary artery disease in the [place] coronary artery without angina with elevated troponins and a fixed defect. 2. Advanced dementia. 3. Uncomplicated urinary tract infection, status post treatment. 4. Deconditioning. 5. Controlled hypertension. 6. History of falls. 7. Delirium, resolved. HISTORY OF PRESENT ILLNESS AND HOSPITAL COURSE: The patient is an 87-year-old -[place] femal e with past medical history significant for advanced dementia, who presented from the [facility] ency Department after having increased in falls and confusion at home where with her son where he is a primary caregiver. She did have one significant fall onto her left side for which the patient endo rsed left lower extremity pain as well as left-sided chest wall pain. Upon arrival to the emergency department in [place], patient was found to have a UTI and elevated troponins and therefore was sen t to [facility] for further workup and risk stratification. Patient is aler t and oriented only to self at baseline. The patient was nontoxic and nonseptic in appearance and wa s given Rocephin for her urinary tract infection to treat her as the presumed etiology of disorientat ion, increased confusion and falls. Urine cultures ultimately showed no growth at [facility] because she was treated at the outside facility prior to receiving urine culture he re in our department. Regarding her elevated troponins, the patient's troponins were trended. EKG showed nonspecific ST ch anges. Troponins reached a maximum of 0.131 throughout her hospital stay with negative CK-MB. The r esults were discussed with her son, who desired stress test and results are stated above. At this po int, Dr. Reyes with Cardiology was consulted to evaluate the patient given the concern for fixed d efect on the inferior wall on Cardiolite scan; however, with patient's advanced dementia, Cardiology recommended maximum medical therapy and not invasive evaluation at this time. Therefore, she was sta rted on low dose beta-irina and aspirin and a statin given and an LDL of 99. The patient was noted to be deconditioned throughout her hospital stay and had difficulty with ambula tion with physical therapy; therefore, care home facility was recommended upon discharge. Son also anticipated for long-term placement after discharge. Case management was consulted and a bed wa s found in [place] at [facility], patient was transferred after a 5-day hospital s donald, asymptomatic and after completion of antibiotics for presumed UTI. DISCHARGE INSTRUCTIONS: 1. Location: To [facility] in [place], [place]. 2. Activity: As tolerated. 3. Diet: Heart healthy. 4. Followup: With primary care physician in [place] upon discharge. DISPOSITION: Stable; however, expect to continue to decline due to advanced dementia.
--- NOTE | 2017-10-10 10:26 | STRESS ---
Acquisition Time: 2017-09-26 11:56:04 Total Exercise Time: 00:04:00 Test Indications: INDETERMINATE TROPONINS Medications: Protocol: ADENOSINE Max HR: 093 BPM 70% of Pred: 132 BPM Max BP: 132/060 mmHG Max Work Load: 1.0 METS RESTING ECG: NORMAL SINUS RHYTHM AT 75 BPM WITH RARE PACs AND PVC'S SYMPTOMS: SHORTNESS OF BREATH NORMAL BP RESPONSE ECTOPY: NONE ECG RESPONSE: NO SIGNIFICANT CHANGES INTERPRETATION: AWAIT NUCLEAR IMAGES FOR DEFINITIVE DIAGNOSIS Confirmed by MILANA JUNG ([id number]), editor index YENNI BANEGAS ([id number]) on 10/10/2017 10:24:55 AM Referred By: MD Clara CASTILLO Confirmed By:MILANA JUNG
--- NOTE | 2017-10-17 12:58 | EKG ---
Test Reason : Blood Pressure : / mmHG Vent. Rate : 075 BPM Atrial Rate : 075 BPM P-R Int : 140 ms QRS Dur : 082 ms QT Int : 410 ms P-R-T Axes : 033 -10 031 degrees QTc Int : 457 ms Normal sinus rhythm Normal ECG Confirmed by ELENA VALLEJO ([id number]), associate editor CAROL MITCHELL ([id number]) on 10/17/2017 12:58:33 PM Referred By: YONI Confirmed By:ELENA VALLEJO
--- NOTE | 2017-10-27 15:08 | EKG ---
Test Reason : Blood Pressure : / mmHG Vent. Rate : 080 BPM Atrial Rate : 069 BPM P-R Int : 000 ms QRS Dur : 078 ms QT Int : 392 ms P-R-T Axes : 000 -05 054 degrees QTc Int : 452 ms Atrial fibrillation with a competing junctional pacemaker Abnormal ECG Confirmed by ELENA VALLEJO ([id number]), health editor CAROL MITCHELL ([id number]) on 10/27/2017 3:07:47 PM Referred By: YONI Confirmed By:ELENA VALLEJO
== END 2017-09-29 14:20 | DRG 689 ==
LOC: ERS 18:37 → ERHOLD 20:28 → 2NO 09-24 00:02
PROVIDERS: ADMIT Student in an Organized Health Care Education/Training Program; ATTEND Student in an Organized Health Care Education/Training Program
DX: N30.00 Acute cystitis without hematuria (principal); G93.40 Encephalopathy, unspecified; F03.90 Unspecified dementia, unspecified severity, without behavioral disturbance, psychotic disturbance, mood disturbance, and anxiety; I48.91 Unspecified atrial fibrillation; I35.0 Nonrheumatic aortic (valve) stenosis; I25.10 Atherosclerotic heart disease of native coronary artery without angina pectoris; I10 Essential (primary) hypertension; Z91.81 History of falling; Z88.8 Allergy status to other drugs, medicaments and biological substances
CPT/HCPCS: 36415; 36416; 51701; 70450; 78452; 80048; 80053; 80061; 80306; 81003; 81015; 82306; 82553; 83036; 83690; 83735; 84134; 84484; 85025; 87086; 93005; 93017; 93306; 94760; A4216; A9500; G8978-GP-CK; G8979-GP-CJ; G8987-GO-CL; G8988-GO-CJ; G8996-GN-CK; G8997-GN-CK; J0153; J0360; J0696; J1650